=== PATIENT | female | born 1990 | race Caucasian/White ===

== ENCOUNTER 2016-12-25 16:24 | Outpatient (CLI) ==
[2013-12-12 09:27] VITALS: BMI 19.1
[2016-12-25 18:31] LABS: FLU INTERNAL QC INTERNAL QC VALID; RAPID FLU A NEGATIVE (NEGATIVE); RAPID FLU B NEGATIVE (NEGATIVE)
== END 2016-12-25 16:25 | disposition home or self-care (01) ==
LOC: LAB 16:24
PROVIDERS: ATTEND Nurse Practitioner Family
DX: J02.9 Acute pharyngitis, unspecified (principal); R05 Cough
CPT/HCPCS: 87651; 87804; 87880

== ENCOUNTER 2017-01-18 10:41 | Emergency (ER) ==
[2017-01-18 10:41] VITALS: BMI 19.1
[2017-01-18 10:45] VITALS: TEMP 97.5
--- NOTE | 2017-01-18 11:06 | ED.PDOC ---
General ED Provider: Dr. KEVAN STONE JR Chief Complaint: Non-specific Complaint Stated Complaint: has had problems with right side of jaw for a week, now states unable to popen mouth all the way. has been popping and hurts to chew [ End]97.5 62 18 100 169/100 3/10 unable to open mouth all the way. pain to right side of jaw with popping [End] Time Seen by Physician: 11:05 Mode of Arrival: Walk-In Information Source: Patient Exam Limitations: No limitations [facility] Triage Documentation Reviewed and Agree: No EENT Complaint Exam - Dental/Oral Complaint/Exam Mechanism of Injury: No known trauma Symptoms Are: Still present Timing: Intermittent Initial Severity: Moderate Current Severity: Mild Character: Reports: Aching Associated Signs and Symptoms: Denies: Swelling, Discharge, Fever, Foul odor, Foul taste in mouth Cardiac Risk Factors: Reports: Hypertension Teeth Picture: 1 - decay visible Review of Systems - Review Of Systems Constitutional: Reports: No symptoms Eyes: Reports: No symptoms Ears, Nose, Mouth, Throat: Reports: Mouth pain (difficulty opening mouth no trismus on exam) Respiratory: Reports: No symptoms Cardiac: Reports: No symptoms GI: Reports: No symptoms : Reports: No symptoms Musculoskeletal: Reports: No symptoms Skin: Reports: No symptoms Neurological: Reports: No symptoms Endocrine: Reports: No symptoms Hematologic/Lymphatic: Reports: No symptoms All Other Systems: Other Past Medical History - Past Medical History Previously Healthy: Yes Endocrine: Reports: None Cardiovascular: Reports: None Respiratory: Reports: None Hematological: Reports: None Gastrointestinal: Reports: None Genitourinary: Reports: None Neuro/Psych: Reports: None Musculoskeletal: Reports: None Cancer: Reports: None Last Menstrual Period: last month - Surgical History General Surgical History: Reports: None - Family History Family History: Reports: Unknown - Social History Smoking Status: Current every day smoker Hx Substance Use: No Alcohol Screening: Occasionally Physical Exam - Physical Exam Appearance: Well-appearing, Thin Pain Distress: Mild Eyes: DAYDAY, EOMI, Conjunctiva clear ENT: Ears normal, Nose normal, Oropharynx normal (no popping TMJ seems normal note bad teeth khushboo right upper without teena discharge) Neck: Supple Respiratory: Airway patent, Breath sounds clear, Breath sounds equal, Respirations nonlabored Cardiovascular: RRR, Pulses normal, No rub, No murmur GI/: Soft, Nontender, No masses, Bowel sounds normal, No Organomegaly Musculoskeletal: Normal strength, ROM intact, No edema, No calf tenderness Skin: Warm, Dry, Normal color Neurological: Sensation intact, Motor intact, Reflexes intact, Cranial nerves intact, Alert, Oriented Psychiatric: Affect appropriate, Mood appropriate Critical Care Note - Critical Care Note Total Time (mins): 0 Course - Course Vital Signs: Temp Pulse Resp BP Pulse Ox 01/18/17 10:41 97.5 F L 62 18 169/111 H 100 Departure - Departure Time of Disposition: 11:14 Disposition: HOME SELF-CARE Discharge Problem: Toothache, Pain, dental Instructions: Dental Caries (ED), Toothache (ED), How to Stop Smoking (ED) Condition: Good Pt referred to PMD for follow-up: Yes Additional Instructions: follow up dentist as soon as possible Naprosyn for pain Clindamycin antibiotic Julian for pain not controlled may ask dentist about ENT evaluation follow up PMD discuss symptoms and antibiotics recheck blood pressure resume medication if still elevated(169/100 today) Prescriptions: Hydrocodone Bit/Acetaminophen [Julian 5-325] 1 - 2 tab PO Q6HR PRN #12 tablet PRN Reason: pain Naproxen [Naprosyn] 500 mg PO Q12HR PRN #30 tablet PRN Reason: PAIN Clindamycin HCl 300 mg PO QID #40 capsule Allergies/Adverse Reactions: Allergies No Known Allergies Allergy (Verified 01/18/17 10:45) Home Medications: Ambulatory Orders Clindamycin HCl 300 mg PO QID #40 capsule 01/18/17 Hydrocodone Bit/Acetaminophen [Julian 5-325] 1 - 2 tab PO Q6HR PRN #12 tablet 10/06 Naproxen [Naprosyn] 500 mg PO Q12HR PRN #30 tablet 01/18/17
[2017-01-18 11:31] VITALS: BP 132/88
== END 2017-01-18 11:30 | disposition home or self-care (01) ==
LOC: ED 10:41
DX: K08.89 Other specified disorders of teeth and supporting structures (principal); I10 Essential (primary) hypertension; K02.7 Dental root caries; F17.210 Nicotine dependence, cigarettes, uncomplicated
CPT/HCPCS: 99282

== ENCOUNTER 2017-06-12 11:55 | Emergency (ER) ==
[2017-06-12 12:00] VITALS: BP 136/94; TEMP 99.8; BMI 18.6
[2017-06-12] MEDS ORDERED: ROCEPHIN IM STA (12:07)
[2017-06-12] MEDS ORDERED: TORADOL IM STA (12:07)
[2017-06-12] MEDS ORDERED: LIDOCAINE HCL 1% SDV SUBCUT STA (12:07)
--- NOTE | 2017-06-12 12:10 | ED.PDOC ---
General ED Provider: Dr. DAHIANA GUPTA Chief Complaint: Tooth Problem Stated Complaint: Patient woke up right face swelling and pain, Time Seen by Physician: 12:08 Mode of Arrival: Walk-In Information Source: Patient Primary Care Provider: DAHIANA [facility] Nursing and Triage Documentation Reviewed and Agree: Yes EENT Complaint Exam - Dental/Oral Complaint/Exam Mechanism of Injury: No known trauma Symptoms Are: Still present Timing: Constant Initial Severity: Moderate Current Severity: Moderate Character: Reports: Aching Aggravating: Reports: Cold, Chewing Alleviating: Reports: None Associated Signs and Symptoms: Reports: Swelling, Foul odor, Foul taste in mouth Related History: Reports: Similar episode Cardiac Risk Factors: Reports: None Dental/Oral Surgical History: Reports: None Tooth Findings: Present: Percussion tenderness, Gross decay, Dental fracture, Abcess, Cellulitis Cervical Lymphadenopathy Present: Yes Facial Swelling Present: Yes Bleeding Present: No Septal Hematoma: No Foreign Body Present: No Dysphagia Present: No Drooling Present: No Asymmetrical Tonsillar Swelling Present: No Uvula Midline: No Jacquelin-tonsillar Fluctuence: No Trismus Present: No Palatal Petechiae Present: No Scarlatinaform Rash Present: No Teeth Picture: 1 - grossly decay, swollen gums Differential Diagnoses: Dental Abcess Review of Systems - Review Of Systems Constitutional: Reports: No symptoms Eyes: Reports: No symptoms Ears, Nose, Mouth, Throat: Reports: Mouth pain, Mouth swelling Respiratory: Reports: No symptoms Cardiac: Reports: No symptoms GI: Reports: No symptoms : Reports: No symptoms Musculoskeletal: Reports: No symptoms Skin: Reports: No symptoms Neurological: Reports: No symptoms Endocrine: Reports: No symptoms Hematologic/Lymphatic: Reports: No symptoms All Other Systems: Reviewed and Negative Past Medical History - Past Medical History Previously Healthy: Yes Endocrine: Reports: None Cardiovascular: Reports: None Respiratory: Reports: None Hematological: Reports: None Gastrointestinal: Reports: None Genitourinary: Reports: None Neuro/Psych: Reports: None Musculoskeletal: Reports: None Cancer: Reports: None Last Menstrual Period: 1 week ago - Surgical History General Surgical History: Reports: None - Family History Family History: Reports: Unknown - Social History Smoking Status: Current every day smoker Smoking Cessation Counseling Time: > 3 min - 10 min Hx Substance Use: No Alcohol Screening: Occasionally Physical Exam - Physical Exam Appearance: Well-appearing, No pain distress, Well-nourished Eyes: DAYDAY, EOMI, Conjunctiva clear ENT: Oropharynx normal Respiratory: Airway patent, Breath sounds clear, Breath sounds equal, Respirations nonlabored Cardiovascular: RRR, Pulses normal, No rub, No murmur GI/: Soft, Nontender, No masses, Bowel sounds normal, No Organomegaly Musculoskeletal: Normal strength, ROM intact, No edema, No calf tenderness Skin: Warm, Dry, Normal color Neurological: Sensation intact, Motor intact, Reflexes intact, Cranial nerves intact, Alert, Oriented Psychiatric: Affect appropriate, Mood appropriate Critical Care Note - Critical Care Note Total Time (mins): 0 Course - Course Orders, Labs, Meds: Orders Category Date Time Status Ceftriaxone Sodium [Rocephin] MEDS 06/12/17 12:07 Stat 1 gm IM ONCE STA Ketorolac Tromethamine [Toradol] MEDS 06/12/17 12:07 Stat 30 mg IM ONCE STA Lidocaine HCl/Pf [Lidocaine HCl 1% Sdv] MEDS 06/12/17 12:07 Stat 5 ml SUBCUT ONCE STA Vital Signs: Temp Pulse Resp BP Pulse Ox 06/12/17 11:57 99.8 F H 116 H 20 136/94 H 98 Departure - Departure Time of Disposition: 12:14 Disposition: HOME SELF-CARE Discharge Problem: Dental abscess Instructions: Dental Abscess (ED) Condition: Good Pt referred to PMD for follow-up: Yes Additional Instructions: needs f/u with dentist Take medication with food. f/u [facility] in 3-4 days Prescriptions: Amoxicillin/Potassium Clav [Augmentin 500-125 mg Tab] 1 tab PO Q12HR #20 tablet Clindamycin HCl 300 mg PO TID #15 capsule Hydrocodone/Acetaminophen [[place]lings 5-325 Tablet] 1 tab PO TID PRN #12 tablet PRN Reason: PAIN Allergies/Adverse Reactions: Allergies No Known Allergies Allergy (Verified 06/12/17 12:00) Home Medications: Ambulatory Orders Amoxicillin/Potassium Clav [Augmentin 500-125 mg Tab] 1 tab PO Q12HR #20 tablet 09/23/17 Clindamycin HCl 300 mg PO TID #15 capsule 06/12/17 Hydrocodone/Acetaminophen [[place]lings 5-325 Tablet] 1 tab PO TID PRN #12 tablet 06/12 Disposition Discussed With: Patient
== END 2017-06-12 12:42 | disposition home or self-care (01) ==
LOC: ED 11:55
DX: K04.7 Periapical abscess without sinus (principal); F17.210 Nicotine dependence, cigarettes, uncomplicated
CPT/HCPCS: 96372; 99283

== ENCOUNTER 2017-09-14 14:23 | Emergency (ER) ==
[2017-09-14 14:28] VITALS: BP 133/90; TEMP 99; BMI 19.1
--- NOTE | 2017-09-14 16:41 | ED.PDOC ---
General ED Provider: Dr. SANDRA LARA Chief Complaint: Tooth Problem Stated Complaint: tooth pain Time Seen by Physician: 14:30 Mode of Arrival: Walk-In Information Source: Patient Exam Limitations: No limitations [facility] and Triage Documentation Reviewed and Agree: Yes Reviewed sepsis parameters & appropriate labs ordered?: Yes System Inflammatory Response Syndrome: Not Applicable Sepsis Protocol: For patient's 13 years and over: Temp is 96.8 and below OR 101 and greater Pulse >90 BPM Resp >20/minute Acutely Altered Mental Status Are patient's symptoms suggestive of a new infection, such as: -Pneumonia -Skin, Soft Tissue -Endocarditis -UTI -Bone, Joint Infection -Implantable Device -Acute Abdominal Infection -Wound Infection -Meningitis -Blood Stream Catheter Infection -Unknown EENT Complaint Exam - Dental/Oral Complaint/Exam Mechanism of Injury: No known trauma Onset/Duration: 1 week Symptoms Are: Still present Timing: Intermittent Initial Severity: Moderate Current Severity: Moderate Character: Reports: Aching, Throbbing Aggravating: Reports: Heat, Cold, Chewing Alleviating: Reports: Heat Associated Signs and Symptoms: Denies: Swelling, Discharge, Fever, Foul odor, Foul taste in mouth Related History: Reports: Similar episode Cardiac Risk Factors: Reports: None Dental/Oral Surgical History: Reports: None Tooth Findings: Present: Dental fracture Cervical Lymphadenopathy Present: No Facial Swelling Present: No Bleeding Present: No Oropharynx Findings: Absent: Clots, Active bleeding Septal Hematoma: No Foreign Body Present: No Dysphagia Present: No Drooling Present: No Asymmetrical Tonsillar Swelling Present: No Uvula Midline: No Jacquelin-tonsillar Fluctuence: No Trismus Present: No Palatal Petechiae Present: No Scarlatinaform Rash Present: No Teeth Picture: 1 - broken Differential Diagnoses: Dental Caries, Fractured Tooth Review of Systems - Review Of Systems Constitutional: Reports: No symptoms Eyes: Reports: No symptoms Ears, Nose, Mouth, Throat: Reports: No symptoms Respiratory: Reports: No symptoms Cardiac: Reports: No symptoms GI: Reports: No symptoms : Reports: No symptoms Musculoskeletal: Reports: No symptoms Skin: Reports: No symptoms Neurological: Reports: No symptoms Endocrine: Reports: No symptoms Hematologic/Lymphatic: Reports: No symptoms All Other Systems: Reviewed and Negative Past Medical History - Past Medical History Previously Healthy: Yes Endocrine: Reports: None Cardiovascular: Reports: None Respiratory: Reports: None Hematological: Reports: None Gastrointestinal: Reports: None Genitourinary: Reports: None Neuro/Psych: Reports: None Musculoskeletal: Reports: None Cancer: Reports: None Last Menstrual Period: Beginning of August - Surgical History General Surgical History: Reports: None - Family History Family History: Reports: Unknown - Social History Smoking Status: Current every day smoker Hx Substance Use: No Alcohol Screening: None - Immunizations Tetanus Shot up to Date: Yes Physical Exam - Physical Exam Appearance: Well-appearing, No pain distress, Well-nourished Eyes: DAYDAY, EOMI, Conjunctiva clear ENT: Ears normal, Nose normal, Oropharynx normal Respiratory: Airway patent, Breath sounds clear, Breath sounds equal, Respirations nonlabored Cardiovascular: RRR, Pulses normal, No rub, No murmur GI/: Soft, Nontender, No masses, Bowel sounds normal, No Organomegaly Musculoskeletal: Normal strength, ROM intact, No edema, No calf tenderness Skin: Warm, Dry, Normal color Neurological: Sensation intact, Motor intact, Reflexes intact, Cranial nerves intact, Alert, Oriented Psychiatric: Affect appropriate, Mood appropriate Critical Care Note - Critical Care Note Total Time (mins): 0 Course - Course Vital Signs: Temp Pulse Resp BP Pulse Ox 09/14/17 14:24 99.0 F 88 20 133/90 100 Departure - Departure Time of Disposition: 16:41 Disposition: HOME SELF-CARE Discharge Problem: Toothache Instructions: Dental Caries (GEN), Toothache (ED) Condition: Good Pt referred to PMD for follow-up: Yes Additional Instructions: Please call your Family Physician as soon as possible to schedule a follow-up appointment. Prescriptions: Amoxicillin 500 mg PO Q8HR #21 tablet Hydrocodone/Acetaminophen [[place] 10-325 Tablet] 1 each PO Q8HR #14 tablet Allergies/Adverse Reactions: Allergies No Known Allergies Allergy (Verified 06/12/17 12:00) Home Medications: Ambulatory Orders Amoxicillin/Potassium Clav [Augmentin 500-125 mg Tab] 1 tab PO Q12HR #20 tablet 06/12/17 Clindamycin HCl 300 mg PO TID #15 capsule 06/12/17 Hydrocodone/Acetaminophen [[place] 5-325 Tablet] 1 tab PO TID PRN #12 tablet 06/12 Amoxicillin 500 mg PO Q8HR #21 tablet 09/14/17 Hydrocodone/Acetaminophen [[place]run[place] 10-325 Tablet] 1 each PO Q8HR #14 tablet
== END 2017-09-14 16:50 | disposition home or self-care (01) ==
LOC: ED 14:23
DX: K08.89 Other specified disorders of teeth and supporting structures (principal); S02.5XXA Fracture of tooth (traumatic), initial encounter for closed fracture; K02.7 Dental root caries; F17.210 Nicotine dependence, cigarettes, uncomplicated
CPT/HCPCS: 99282

== ENCOUNTER 2018-01-05 11:33 | Emergency (ER) ==
[2018-01-05 11:44] VITALS: BP 158/105; TEMP 97.9; BMI 18.3
--- NOTE | 2018-01-05 13:50 | US ---
EXAM: Transvaginal OB ultrasound HISTORY: Bleeding for 1 day with reported positive test COMPARISON: None TECHNIQUE: Multiple sonographic and limited Doppler evaluation images were performed.Transvaginal ex am was performed to better evaluate anatomy. FINDINGS: There is no intrauterine gestation, gestational sac or additional abnormality. The uterus measures 7.0 x 3.3 x 2.9 cm and is normal in appearance. The right ovary measures 2.9 x 1.2 x 1.5 cm. The ovary demonstrates a 0.5 x 0.3 x 0.5 cm cyst. The left ovary measures 2.9 x 1 and 6 x 1.5 cm. There is a cyst measuring 0.5 x 0.6 x 0.4 cm. There is no significant free fluid in the pelvis. IMPRESSION: 1. No intrauterine or ectopic is identified. Continued follow-up with Beta HCG and potent ial ultrasound follow-up is recommended. 2. Bilateral anechoic ovarian cysts with no definitive ectopic .
--- NOTE | 2018-01-05 14:18 | ED.PDOC ---
General ED Provider: Dr. SANDRA LARA Chief Complaint: Vaginal Bleeding Stated Complaint: scant vaginal bleding Time Seen by Physician: 11:40 ( arrives with no active beeding pain free lastLMP NOV 14) Mode of Arrival: Walk-In Information Source: Patient Exam Limitations: No limitations Primary Care Provider: DAHIANA CORONEL Referred to ED by: Other (DEA URINE TEST WAS POSTIVE ) Nursing and Triage Documentation Reviewed and Agree: Yes Reviewed sepsis parameters & appropriate labs ordered?: Yes System Inflammatory Response Syndrome: Not Applicable Sepsis Protocol: For patient's 13 years and over: Temp is 96.8 and below OR 101 and greater Pulse >90 BPM Resp >20/minute Acutely Altered Mental Status Are patient's symptoms suggestive of a new infection, such as: -Pneumonia -Skin, Soft Tissue -Endocarditis -UTI -Bone, Joint Infection -Implantable Device -Acute Abdominal Infection -Wound Infection -Meningitis -Blood Stream Catheter Infection -Unknown System Inflammatory Response Syndrome: Not Applicable Complaint Exam - UTI Female Complaint/Exam Onset/Duration: 1 DAY Symptoms Are: Resolved Timing: Intermittent Initial Severity: Mild Current Severity: None Location of Pain: Reports: None Associated Signs and Symptoms: Denies: Fever, Chills, Flank pain, Dyspareunia, Vaginal discharge Patient Rh Status: Unknown : 4 Para: 2 Hx Total # of Abortions (Spontaneous & Elective): 2 Related History: Reports: Similar episode Related Surgical History: Reports: None CVA Tenderness: No Differential Diagnoses: Other (ECTOPIC ) Review of Systems - Review Of Systems Constitutional: Reports: No symptoms Eyes: Reports: No symptoms Ears, Nose, Mouth, Throat: Reports: No symptoms Respiratory: Reports: No symptoms Cardiac: Reports: No symptoms GI: Reports: No symptoms : Reports: Other (VAGINAL BLEEDING) Musculoskeletal: Reports: No symptoms Skin: Reports: No symptoms Neurological: Reports: No symptoms Endocrine: Reports: No symptoms Hematologic/Lymphatic: Reports: No symptoms All Other Systems: Reviewed and Negative Past Medical History - Past Medical History Previously Healthy: Yes Endocrine: Reports: None Cardiovascular: Reports: None Respiratory: Reports: None Hematological: Reports: None Gastrointestinal: Reports: None Genitourinary: Reports: None Neuro/Psych: Reports: None Musculoskeletal: Reports: None Cancer: Reports: None Last Menstrual Period: oct, 2017 - Surgical History General Surgical History: Reports: None - Family History Family History: Reports: Unknown - Social History Smoking Status: Current every day smoker, Heavy tobacco smoker Hx Substance Use: No Alcohol Screening: None Physical Exam - Physical Exam Appearance: Well-appearing, No pain distress, Well-nourished Eyes: DAYDAY, EOMI, Conjunctiva clear ENT: Ears normal, Nose normal, Oropharynx normal Respiratory: Airway patent, Breath sounds clear, Breath sounds equal, Respirations nonlabored Cardiovascular: RRR, Pulses normal, No rub, No murmur GI/: Soft, Nontender, No masses, Bowel sounds normal, No Organomegaly Musculoskeletal: Normal strength, ROM intact, No edema, No calf tenderness Skin: Warm, Dry, Normal color Neurological: Sensation intact, Motor intact, Reflexes intact, Cranial nerves intact, Alert, Oriented Psychiatric: Affect appropriate, Mood appropriate Interpretation - Radiology Interpretation Radiology Interpretation By: Radiologist Radiology Results: No acute changes Critical Care Note - Critical Care Note Total Time (mins): 0 Course - Course Hematology/Chemistry: 01/05/18 12:00 Orders, Labs, Meds: Lab Review 01/05/18 01/05/18 01/05/18 12:00 12:00 12:00 WBC 6.88 RBC 3.72 L Hgb 11.4 L Hct 33.4 L MCV 89.8 MCH 30.6 MCHC 34.1 RDW Coeff of Jason 12.9 Plt Count 254 Immature Gran % (Auto) 0.1 Neut % (Auto) 38.7 Lymph % (Auto) 51.3 H [place] % (Auto) 7.6 Eos % (Auto) 1.6 Baso % (Auto) 0.7 Immature Gran # (Auto) 0.0 Neut # (Auto) 2.7 Lymph # (Auto) 3.5 H [place] # (Auto) 0.5 Eos # (Auto) 0.1 Baso # (Auto) 0.1 PT 10.1 INR 1.01 APTT 28.5 HCG, Quant Serum , Qual Positive 01/05/18 12:00 WBC RBC Hgb Hct MCV MCH MCHC RDW Coeff of Jason Plt Count Immature Gran % (Auto) Neut % (Auto) Lymph % (Auto) [place] % (Auto) Eos % (Auto) Baso % (Auto) Immature Gran # (Auto) Neut # (Auto) Lymph # (Auto) [place] # (Auto) Eos # (Auto) Baso # (Auto) PT INR APTT HCG, Quant 55.30 Serum , Qual Orders Category Date Time Status CBC W/ AUTO DIFF Stat LAB 01/05/18 12:00 Completed HCG,QUANTITATIVE Stat LAB 01/05/18 12:00 Completed PARTIAL THROMBOPLASTIN TIME Stat LAB 01/05/18 12:00 Completed PT WITH INR Stat LAB 01/05/18 12:00 Completed SERUM Stat LAB 01/05/18 12:00 Completed U/S OB/TV Stat RADS 01/05/18 12:51 Completed Vital Signs: Temp Pulse Resp BP Pulse Ox 01/05/18 11:36 97.9 F 94 H 20 158/105 H 99 Departure - Departure Time of Disposition: 14:19 (SEEN AT ALL TIMES WITH PT'S NURSE TEST AND U/S REPORT DISCUSSED ) Disposition: HOME SELF-CARE Discharge Problem: Bleeding from vagina Instructions: Threatened Miscarriage (ED) Condition: Good Pt referred to PMD for follow-up: Yes IPMP verified?: No Additional Instructions: Please call your Family Physician as soon as possible to schedule a follow-up appointment. Allergies/Adverse Reactions: Allergies No Known Allergies Allergy (Verified 01/05/18 11:42) Home Medications: Ambulatory Orders 1 [No Reported Medications] 01/05/18
== END 2018-01-05 14:29 | disposition home or self-care (01) ==
LOC: ED 11:33
DX: O20.0 Threatened abortion (principal); F17.210 Nicotine dependence, cigarettes, uncomplicated
CPT/HCPCS: 36415; 84702; 84703; 85025; 85610; 85730; 99283